=== PATIENT | male | born 1965 | race Caucasian/White ===

== ENCOUNTER 2017-03-14 07:33 | Emergency (ER) | payer OTHER ==
[2017-03-14 07:38] VITALS: BP 144/82; PULSE 75; RESP 17; TEMP 98.6; O2SAT 94
--- NOTE | 2017-03-14 08:00 | EDPHY ---
H & P Time Seen by Provider: 03/14/17 07:43 HPI/ROS: CHIEF COMPLAINT: right forearm laceration HISTORY OF PRESENT ILLNESS: 51-year-old male presents with a right forearm laceration. He was getting out of a truck at work when his arm struck something on the truck. Immediate onset of moderate pain and bleeding, both of which have subsided now. No weakness or numbness. Tetanus is not up-to-date. ROS: No numbness, weakness, excessive bleeding, syncopal episode, other injury. Past Medical/Surgical History: Denies Smoking Status: Never smoked Physical Exam: Alert and oriented, pleasant Extremities: 4 cm v-shaped laceration on the dorsal aspect of the right proximal forearm; elbow range of motion including supination and pronation are normal and without pain Skin: see above Neuro: Motor and sensory intact Vascular: Capillary refill brisk distally. Constitutional: Initial Vital Signs Temperature (C) 37 C 03/14/17 07:35 Heart Rate 75 03/14/17 07:35 Respiratory Rate 17 03/14/17 07:35 Blood Pressure 144/82 H 03/14/17 07:35 O2 Sat (%) 94 03/14/17 07:35 O2 Delivery Mode Room Air Allergies/Adverse Reactions: No Known Allergies Allergy (Unverified 03/14/17 07:35) Home Medications: Medication Instructions Recorded NK [No Known Home Meds] 03/14/17 Medical Decision Making Procedures: Procedure: Laceration repair. The 4 cm laceration on the location was anesthetized using lidocaine with epinephrine. The wound was irrigated, draped and explored to its base with a gloved finger. There were no deep structures involved. No foreign body palpable. The wound was repaired with 4 0 Ethilon. The wound repair was simple. Departure - Departure Disposition: Home, Routine, Self-Care Clinical Impression: Laceration of forearm, right Qualifiers: Encounter type: initial encounter Qualified Code(s): S51.811A - Laceration without foreign body of right forearm, initial encounter Condition: Good Instructions: Care For Your Stitches (ED), Laceration (ED) Additional Instructions: Return for suture removal in 10 days. Referrals: HEBERT,UNKNOWN [Other] - As per Instructions
[2017-03-14] MEDS ORDERED: TDAP ADULT 0.5 ML INJ (BOOSTRIX) IM ONE (08:06)
== END 2017-03-14 08:30 | disposition home or self-care (01) ==
PROC: 0HQDXZZ Repair Right Lower Arm Skin, External Approach (ICD-10-PCS; principal; 2017-03-14)
PROC: 3E0234Z Introduction of Serum, Toxoid and Vaccine into Muscle, Percutaneous Approach (ICD-10-PCS; principal; 2017-03-14)
DX: S51.811A Laceration without foreign body of right forearm, initial encounter (principal); Z23 Encounter for immunization; W22.8XXA Striking against or struck by other objects, initial encounter; Y92.69 Other specified industrial and construction area as the place of occurrence of the external cause; Y99.0 Civilian activity done for income or pay; Y93.89 Activity, other specified

== ENCOUNTER 2018-03-20 09:19 | Inpatient (IN) | payer OTHER, BC ==
[2018-03-20] MEDS ORDERED: NS 1,000 ML IV ONE ×2 (09:27→11:35)
[2018-03-20] MEDS ORDERED: ACETAMINOPHEN 500 MG TAB PO ONE (09:55)
--- NOTE | 2018-03-20 09:59 | EDPHY ---
H & P Stated Complaint: L hernia pain x 4 days worse today. Seen yesterday. Time Seen by Provider: 03/20/18 09:22 HPI/ROS: 52-year-old male presents complaining left inguinal hernia pain and just not feeling well. He states approximately 5 days ago he lifted a very heavy object at work approximately 130 lb and had sudden pain in his left groin. Over the weekend he did not feel well, was running a fever, not measured at home and having sweats. He denies vomiting, diarrhea, constipation. [facility] for a possible left inguinal hernia which was found to be reducible and he was discharged with advised follow-up with surgery. He has an appointment with Dr. Edgard Avelar this March 22. However today he noted he had a high fever and some left-sided abdominal and left groin pain and continued to just not feel well and presented for re- evaluation. He states he took Advil yesterday and has not taken any medications today. Review of systems As per HPI General positive fever no chills no weakness HEENT no eye pain no eye discharge. No eye redness, no sore throat Respiratory no cough, no shortness of breath Cardiac no chest pain, no peripheral edema GI positive abdominal pain, no diarrhea, no constipation, no nausea, no vomiting no flank pain, no hematuria, no dysuria Musculoskeletal no myalgias, no joint pain Heme no easy bruising, no easy bleeding Endo no polyuria, no polydipsia Skin no rashes, no pruritus Neuro no syncope, no dizziness, positive headaches Psych is no suicidal ideation, no homicidal ideation Source: Patient Exam Limitations: No limitations - Personal History Current Tetanus Diphtheria and Acellular Pertussis (TDAP): Yes Tetanus Vaccine Date: within 10 years - Medical/Surgical History Hx Asthma: No Hx Chronic Respiratory Disease: No Hx Diabetes: No Hx Cardiac Disease: No Hx Renal Disease: No Hx Cirrhosis: No Hx Alcoholism: No Hx HIV/AIDS: No Hx Splenectomy or Spleen Trauma: No Other PMH: denies - Family History Significant Family History: No pertinent family hx - Social History Smoking Status: Never smoked Alcohol Use: Occasionally Drug Use: None - Physical Exam Exam: 52-year-old male alert and oriented in no acute distress, nontoxic appearance, febrile to 38.4 HEENT atraumatic normocephalic, extraocular muscles intact, anicteric Oropharynx negative for erythema negative exudate Neck supple no meningismus Lungs clear to auscultation bilaterally Heart rapid regular rate and rhythm without murmur rub or gallop, 118 Abdomen nondistended normoactive bowel sounds soft, left lower quadrant tenderness, no guarding no rebound Left inguinal tenderness , palpable hernia defect but no palpable mass circumcised, no erythema, no scrotal swelling and no lesions Back no CVA tenderness, no step-offs, no spinal tenderness Extremities no cyanosis clubbing or edema Neuro alert and oriented, no focal deficits skin no rash Constitutional: Initial Vital Signs Temperature (C) 38.4 C H 03/20/18 09:23 Heart Rate 104 H 03/20/18 09:23 Respiratory Rate 16 03/20/18 09:23 Blood Pressure 118/92 H 03/20/18 09:23 O2 Sat (%) 94 03/20/18 09:23 O2 Delivery Mode Room Air Allergies/Adverse Reactions: No Known Allergies Allergy (Verified 03/20/18 09:23) Home Medications: Medication Instructions Recorded NK [No Known Home Meds] 03/14/17 Medical Decision Making - Diagnostics Imaging Results: Imaging Impressions Abdomen Ultrasound 03/20/18 09:56 Impression: Suggestion of a left inguinal hernia measuring up to 4.3 cm. Per hospital admitting clerk, no evidence of peristalsis. Abdomen CT 03/20/18 10:54 Impression: 1. Acute diverticulitis of the sigmoid colon with associated microperforation and 4.0 cm organizing phlegmon. 2. Fatty liver. 3. Subcentimeter left adrenal nodule, which in the absence of comparison studies , may be evaluated with adrenal protocol CT or MRI. 4. Fat-containing left inguinal hernia, which right now contains inflamed fat. Findings and recommendations discussed with Madeleine Mccarty MD at 1128 hour, 03/20/2018. ED Course/Re-evaluation: Patient seen and evaluated for left inguinal, left abdominal pain and fever. IV established IV normal saline 1 L wide open given Acetaminophen 1 g po For fever given Toradol 15 mg IV push for fever and pain also given after creatinine noted to be within the normal range. Labs were drawn CBC-elevated white blood cell count 14 with a left shift Lactate 1.2, within normal limits CMP sodium 131, chloride 92, BUN and creatinine within normal, bilirubin 1.5 Glucose 200 Anion gap 13 Patient given an additional L of normal saline for elevated glucose Ultrasound to evaluate hernia, shows an area consistent with a left inguinal hernia without peristalsis and with no evidence for incarceration Given elevated white blood cell count and left-sided abdominal pain and fever, not explained by the ultrasound or physical exam a CT scan of the abdomen and pelvis with IV contrast was ordered to further elucidate the likely cause. CT abdomen pelvis with contrast Positive for acute diverticulitis with a possible developing phlegmon A left inguinal fat containing hernia also noted Impression Acute diverticulitis with possible developing phlegmon New onset diabetes Left inguinal fat containing hernia Plan Start IV antibiotics Metronidazole 500 mg IV piggyback Cipro 400 mg IV piggyback I discussed this case with the hospitalist to arrange admission. Differential Diagnosis: Differential diagnosis considered but not limited to: Left inguinal hernia, left femoral hernia, incarcerated hernia, diverticulitis, colon cancer, kidney stone, pyelonephritis - Data Points Laboratory Results: 03/20/18 03/20/18 09:53 09:48 POC Sodium 131 mEq/L L mEq/L (135-145) POC Potassium 3.8 mEq/L mEq/L (3.3-5.0) POC Chloride 97.0 mEq/L mEq/L (97-110) POC Total CO2 21 mEq/L L mEq/L (22-31) POC BUN 11 mg/dL mg/dL (7-23) POC Creatinine 1.1 mg/dL mg/dL (0.7-1.3) POC Glucose 207 mg/dL H mg/dL (70-100) POC Lactic Acid Ignacio 1.2 mmol/L mmol/L (0.7-2.1) POC Calcium 8.5 mg/dL mg/dL (8.5-10.4) POC Total Bilirubin 1.5 mg/dL H mg/dL (0.1-1.4) POC AST 27 IU/L IU/L (17-59) POC ALT 30 IU/L IU/L (21-72) POC Alk Phosphatase 61 IU/L IU/L (38-126) POC Total Protein 7.2 g/dL g/dL (6.3-8.2) POC Albumin 3.5 g/dL g/dL (3.5-5.0) Medications Given: Discontinued Medications Acetaminophen (Tylenol) 1,000 mg PO EDNOW ONE Stop: 03/20/18 09:56 Last Admin: 03/20/18 10:33 Dose: 1,000 mg Sodium Chloride (Ns) 1,000 mls @ 0 mls/hr IV ONCE ONE PRN Reason: Wide Open Stop: 03/20/18 09:28 Last Admin: 03/20/18 09:44 Dose: 1,000 mls Metronidazole/Sodium Chloride (Flagyl 500 Mg (Premix)) 100 mls @ 100 mls/hr IV EDNOW ONE PRN Reason: Protocol Stop: 03/20/18 12:33 Last Admin: 03/20/18 12:46 Dose: 100 mls Ciprofloxacin/Dextrose (Cipro 400 Mg (Premix)) 200 mls @ 200 mls/hr IV EDNOW ONE PRN Reason: Protocol Stop: 03/20/18 12:34 Last Admin: 03/20/18 11:47 Dose: 200 mls Sodium Chloride (Ns) 1,000 mls @ 0 mls/hr IV ONCE ONE PRN Reason: Wide Open Stop: 03/20/18 11:36 Last Admin: 03/20/18 11:47 Dose: 1,000 mls Ketorolac Tromethamine (Toradol) 15 mg IVP EDNOW ONE Stop: 03/20/18 10:06 Last Admin: 03/20/18 10:30 Dose: 15 mg Point of Care Test Results: CBC CBC Collection Date 03/20/18 CBC Collection Time 09:42 WBC 14.5 RBC 5.59 HGB 16.1 HCT 47.8 PLT 232 Neut # 12.0 Neut 82.9 LYMPH # 1.3 LYMPH 8.7 Other WBC # 1.2 Other WBC 8.4 MCV 85.5 Chemistry 03/20/18 09:48 POC Sodium 131 mEq/L L mEq/L (135-145) POC Potassium 3.8 mEq/L mEq/L (3.3-5.0) POC Chloride 97.0 mEq/L mEq/L (97-110) POC Total CO2 21 mEq/L L mEq/L (22-31) POC BUN 11 mg/dL mg/dL (7-23) POC Creatinine 1.1 mg/dL mg/dL (0.7-1.3) POC Glucose 207 mg/dL H mg/dL (70-100) POC Calcium 8.5 mg/dL mg/dL (8.5-10.4) POC Total Bilirubin 1.5 mg/dL H mg/dL (0.1-1.4) POC AST 27 IU/L IU/L (17-59) POC ALT 30 IU/L IU/L (21-72) POC Alk Phosphatase 61 IU/L IU/L (38-126) POC Total Protein 7.2 g/dL g/dL (6.3-8.2) POC Albumin 3.5 g/dL g/dL (3.5-5.0) Blood Gas/Lactic Acid-Venous 03/20/18 09:53 POC Lactic Acid Ignacio 1.2 mmol/L mmol/L (0.7-2.1) Comprehensive Metabolic Panel CMP Collection Date 03/20/18 CMP Collection Time 09:42 Urine Dip Collection Date 03/20/18 Collection Time 10:35 Specific [place] (1.002-1.030) 1.020 PH (5.0-7.5) 6.0 Leukocytes (Negative) Negative Nitrites (Negative) Negative Protein (Negative) 2+ Glucose (Negative) Trace Ketones (Negative) 2+ Urobilnogen (0.2-1.0 EU) 2.0 Bilirubin (Negative) Test Not Performed Blood (Negative) Negative Departure - Departure Disposition: [facility] Inpatient Acute Clinical Impression: Diverticulitis large intestine, New onset type 2 diabetes mellitus, Left inguinal hernia Condition: Good
[2018-03-20] MEDS ORDERED: KETOROLAC 15 MG/1 ML SDV IVP ONE (10:05)
[2018-03-20] MEDS ORDERED: IOPAMIDOL (ISOVUE-300) 100 ML BTL ONE (11:01)
[2018-03-20] MEDS ORDERED: CIPROFLOXACIN 400 MG/DEXTROSE 200 ML IV ONE (11:35)
--- NOTE | 2018-03-20 16:57 | ASMTCMCOM ---
CM Note CM Note Notes: Pt admitted through ED complaining of fever and groin pain. CT showed diverticulitis with micro perfs and inguinal hernia. CM needs TBD pending hospitalist evaluation. Date Signed: 03/20/2018 04:23 PM Electronically Signed By:LEO Bernardo
[2018-03-20] MEDS ORDERED: D50W 25 GM/50 ML SYR IVP PRN (17:28)
[2018-03-20] MEDS ORDERED: ONDANSETRON 4 MG/2 ML VIAL IVP PRN (17:29)
[2018-03-20] MEDS ORDERED: PROMETHAZINE HCL 25 MG/ML INJ IVP PRN (17:29)
[2018-03-20] MEDS: ERTAPENEM 1 GM in NS 100 ML IV SCH (18:01)
[2018-03-20] MEDS: ACETAMINOPHEN 325 MG TAB PO PRN (18:10)
--- NOTE | 2018-03-20 18:14 | GHP ---
[f rep st] HISTORY AND PHYSICAL DATE OF ADMISSION: 03/20/2018 CHIEF COMPLAINT: Fever. HISTORY OF PRESENT ILLNESS: This is a 52-year-old male who works at [employer], who developed a hernia on while at work. He took Monday off but Monday developed fever and generalized malaise as well as some sweats. His appetite has been very diminished. His last bowel movement was last night. He has not had any vomiting. He went to [facility] Emergency Department earlier today, where a CT scan was do ne, which showed acute diverticulitis of the sigmoid colon with associated microperforation and 4 cm organizing phlegmon. The patient was then subsequently transferred to [facility], where I saw him. Curr ently the patient denies any significant abdominal pain. PAST MEDICAL HISTORY: None. PAST SURGICAL HISTORY: Ankle surgery. HOME MEDICATIONS: None. ALLERGIES: No known drug allergies. SOCIAL HISTORY: The patient works for [employer]. He drinks alcohol occasionally. He denies any tobacco o r illicit drug use. FAMILY HISTORY: Reviewed and noncontributory. REVIEW OF SYSTEMS: Comprehensive 10-point review of systems was done and is negative except for as m entioned in the HPI. PHYSICAL EXAM: VITAL SIGNS: Blood pressure 103/72, pulse of 84, respiratory rate 18, O2 sat 96% on room air. Temperature afebrile. GENERAL: In no acute distress. HEAD: Normocephalic, atraumatic. EYES: PERRLA. Sclerae are anicteric. MOUTH: Moist mucous membranes. NECK: Supple. No lymphade nopathy. CARDIOVASCULAR: S1 and S2. No murmurs, rubs, clicks, gallops. No JVD. No lower extremit y edema. PULMONARY: Lungs are clear. No wheezes, rales, or rhonchi. ABDOMEN: Soft. Normoactive bowel sounds. There is some mild tenderness to deep palpation in the left lower quadrant with no gua rding or rebound tenderness. EXTREMITIES: No clubbing or cyanosis. NEURO: Cranial nerves 2 throug h 12 grossly intact. No focal motor or sensory deficits. SKIN: Clear. No rashes. DIAGNOSTICS: Laodu-yw-vqme sodium was 131, potassium 3.8, chloride 97, BUN 11, creatinine 1.1, gluco se 207. Venous lactic acid was 1.2, total bili 1.5. LFTs unremarkable. Abdominal ultrasound done earlier today showed suggestions of left inguinal hernia measuring 4.[address] of the abdomen and pelvis also showed a fat-containing left inguinal hernia which contains inflame d fat as well as acute diverticulitis of the sigmoid colon with associated microperforation and a 4 c m organizing phlegmon. There is a subcentimeter left adrenal nodule. ASSESSMENT AND PLAN: This is a 52-year-old male presenting with fever and malaise. Found to have: 1. Acute diverticulitis with microperforation and 4 cm organizing phlegmon. 2. Left inguinal hernia with inflamed fats. 3. Incidental adrenal nodule. 4. Hyperglycemia with no known diagnosis of diabetes. 5. Mild hyponatremia. PLAN: 1. Admit to the medical-surgical floor. 2. Start IV ertapenem 1 g IV q. day. 3. I discussed the case with Dr. Edgard Avelar, on-call for general surgery, who will see the patien t. Given the patient does not currently have signs of acute peritonitis on exam, i will start clear liquids. He may ultimately require surgery for hernia repair and treatment of the phlegmon and micro perforations seen on CT. 4. Monitor blood sugars and treat with correctional insulin as indicated. We will check a hemoglobi n A1c. 5. I will order a CBC, since one has not yet been done. 6. Monitor BMP and serum sodium. 7. The patient requests to be full code status. /[id number]/MODL
[2018-03-20] MEDS: INSULIN REGULAR HUMAN 100 UNIT/ML UNIT SC SCH ×2 (18:42→21:15)
[2018-03-20 18:46] LABS: PLATELET COUNT 220 10^3/uL (150-400)
[2018-03-20] MEDS ORDERED: KETOROLAC 30 MG/1 ML SDV IVP ONE (19:15)
--- NOTE | 2018-03-20 20:02 | SOAPPROG ---
SOAP Progress Note Assessment/Plan: Assessment: 52-YEAR-OLD ILL-APPEARING MALE WITH HIS 1ST EPISODE OF DIVERTICULITIS COMPLICATED BY SMALL ABSCESS. THE ABSCESS MAY BE ACCESSIBLE PERCUTANEOUSLY IF HE FAILS TO RESPOND TO ANTIBIOTICS QUICKLY. RISKS AND OPTIONS BEEN FULLY DISCUSSED INCLUDING EVENTUAL NEED FOR COLECTOMY NO PREVIOUS DIVERTICULITIS OR PREVIOUS ABDOMINAL SURGERY/SHE DOES HAVE A SLIGHTLY SYMPTOMATIC LEFT INGUINAL HERNIA HEENT NONICTERIC WITHOUT ADENOPATHY CHEST CLEAR COR REGULAR RHYTHM ABDOMEN SOFT MILDLY TENDER IN THE SUPRAPUBIC AREA, AND POSITIVE BOWEL SOUNDS, LEFT INGUINAL HERNIA REDUCIBLE GENITALIA NORMAL EXTREMITIES BENIGN FULL PULSES ACUTE DIVERTICULITIS WITH SMALL CONTAINED PERFORATION Plan: WILL FOLLOW WITH IV ANTIBIOTICS AND CLOSE OBSERVATION/ POSSIBLE PERCUTANEOUS DRAINAGE IF THE ABSCESS ENLARGES / POSSIBLE MARGINS SURGERY IF HE IS NOT IMPROVING AND DEFINITE SIGMOID COLECTOMY IN THE FUTURE 03/20/18 Objective: Vital Signs Temp Pulse Resp BP Pulse Ox 36.8 C 84 18 103/72 96 03/20/18 16:13 03/20/18 16:13 03/20/18 16:13 03/20/18 16:13 03/20/18 16:13 03/19/18 03/20/18 03/21/18 05:59 05:59 05:59 Intake Total 2540 Balance 2540 ICD10 Worksheet Patient Problems: Problems Problem Status Onset Diverticulitis large intestine Acute Left inguinal hernia Acute New onset type 2 diabetes mellitus Acute
[2018-03-21] MEDS: KETOROLAC 15 MG/1 ML SDV IVP SCH ×4 (04:10→19:43)
[2018-03-21 05:11] LABS: PLATELET COUNT 197 10^3/uL (150-400)
[2018-03-21] MEDS: ENOXAPARIN 40 MG/0.4 ML SYR SC SCH (10:02)
[2018-03-21] MEDS: INSULIN REGULAR HUMAN 100 UNIT/ML UNIT SC SCH ×4 (10:34→21:11)
--- NOTE | 2018-03-21 11:04 | PDMN ---
Medical Necessity Medical necessity: [facility] Diverticulitis Acute, A-2 days. 52 y/o w/ acute diverticulitis of sigmoid colon w/ associated microperforation and 4cm organizing phlegmon, and left inguinal hernia, IV antibx required, scheduled IV pain medications, Surgical consult: surgery possible for abscess development if no improvement, definite sigmoid colectomy needed in future. New onset Type 2 diabetes. Hypotensive with SBP in 90's. Temp 38.4, Elevated WBC 16.78 (up from 14.48). Hyponatremia noted. BC pending. Anticipate >2MN for ongoing monitoring and treatment.
--- NOTE | 2018-03-21 12:27 | SOAPPROG ---
SOAP Progress Note Assessment/Plan: Assessment: 51 y/o M admitted with small diverticular abscess S: Feels better. Denies pain, nausea and vomiting. Passing gas and BMs. O: Alert Afebrile RRR No increased WOB Abdomen: soft, nontender, slightly distended, +BS Plan: Continue conservative management given clinical improvement. Will continue to follow. Pt will need sigmoid colectomy at some point when infection has cooled off. Appreciate ID input. 03/21/18 12:25 Objective: Vital Signs Temp Pulse Resp BP Pulse Ox 37.3 C 70 18 92/52 L 92 03/21/18 11:47 03/21/18 11:47 03/21/18 11:47 03/21/18 11:47 03/21/18 11:47 Laboratory Results 03/21/18 04:27 03/21/18 04:27 03/20/18 03/21/18 03/22/18 05:59 05:59 05:59 Intake Total 2540 350 Balance 2540 350 ICD10 Worksheet Patient Problems: Problems Problem Status Onset Diverticulitis large intestine Acute Left inguinal hernia Acute New onset type 2 diabetes mellitus Acute
--- NOTE | 2018-03-21 12:29 | HOSPPROG ---
Hospitalist Progress Note Assessment/Plan: Patient is a 52 y/o male who presented to the ER with Fever. He had a CT scan which showed acute diverticulitis of the sigmoid colon w associated microperforation. Today is my first encounter with the patient, chart reviewed. *Acute diverticulitis with a small contained perforation -on Ertapenem -tolerating clear liquids -not in pain during my evaluation -will eventually need a colectomy -continue supportive care with IV hydration *Leukocytosis and fevers -due to the above -continued treatment w Tylenol and fluids *incidental adrenal nodule, this was noted on CT -should continued to have monitored in the OP setting *left inguinal hernia -may need surgery for this down the road *hyperglycemia -overall resolved, likely stress induced *Plan: continued clear liquids, iv fluids, recheck labs in a.m. Subjective: Solo has no complaints of pain, tolerating clear liquids. Objective: Vital Signs Temp Pulse Resp BP Pulse Ox 37.3 C 70 18 92/52 L 92 03/21/18 11:47 03/21/18 11:47 03/21/18 11:47 03/21/18 11:47 03/21/18 11:47 Laboratory Results 03/21/18 04:27 03/21/18 04:27 03/20/18 03/21/18 03/22/18 05:59 05:59 05:59 Intake Total 2540 350 Balance 2540 350 - Physical Exam Constitutional: no apparent distress, appears nourished Eyes: PERRL Ears, Nose, Mouth, Throat: hearing normal Cardiovascular: regular rate and rhythym Respiratory: no respiratory distress Gastrointestinal: normoactive bowel sounds, tenderness (slight in right lower quadrant), No rebound, No distension Skin: warm Musculoskeletal: full muscle strength Neurologic: AAOx3 Psychiatric: interacting appropriately ICD10 Worksheet Patient Problems: Problems Problem Status Onset Diverticulitis large intestine Acute Left inguinal hernia Acute New onset type 2 diabetes mellitus Acute
[2018-03-21] MEDS: NS 1,000 ML IV SCH ×2 (14:09→23:14)
[2018-03-21] MEDS: ACETAMINOPHEN 325 MG TAB PO PRN (15:34)
[2018-03-21] MEDS: ERTAPENEM 1 GM in NS 100 ML IV SCH (17:45)
--- NOTE | 2018-03-21 18:10 | SOAPPROG ---
SOAP Progress Note Assessment/Plan: Assessment: 52-YEAR-OLD ILL-APPEARING MALE WITH HIS 1ST EPISODE OF DIVERTICULITIS COMPLICATED BY SMALL ABSCESS. THE ABSCESS MAY BE ACCESSIBLE PERCUTANEOUSLY IF HE FAILS TO RESPOND TO ANTIBIOTICS QUICKLY. RISKS AND OPTIONS BEEN FULLY DISCUSSED INCLUDING EVENTUAL NEED FOR COLECTOMY NO PREVIOUS DIVERTICULITIS OR PREVIOUS ABDOMINAL SURGERY/SHE DOES HAVE A SLIGHTLY SYMPTOMATIC LEFT INGUINAL HERNIA HEENT NONICTERIC WITHOUT ADENOPATHY CHEST CLEAR COR REGULAR RHYTHM ABDOMEN SOFT MILDLY TENDER IN THE SUPRAPUBIC AREA, AND POSITIVE BOWEL SOUNDS, LEFT INGUINAL HERNIA REDUCIBLE GENITALIA NORMAL EXTREMITIES BENIGN FULL PULSES ACUTE DIVERTICULITIS WITH SMALL CONTAINED PERFORATION Plan: WILL FOLLOW WITH IV ANTIBIOTICS AND CLOSE OBSERVATION/ POSSIBLE PERCUTANEOUS DRAINAGE IF THE ABSCESS ENLARGES / POSSIBLE MARGINS SURGERY IF HE IS NOT IMPROVING AND DEFINITE SIGMOID COLECTOMY IN THE FUTURE 03/20/18 03/21/18 18:09 minimal temp/ improving/ wbc better/ tolerating clears Objective: Vital Signs Temp Pulse Resp BP Pulse Ox 37.4 C 80 18 100/63 91 L 03/21/18 16:00 03/21/18 16:00 03/21/18 16:00 03/21/18 16:00 03/21/18 16:00 Laboratory Results 03/21/18 04:27 03/21/18 04:27 03/20/18 03/21/18 03/22/18 05:59 05:59 05:59 Intake Total 2540 900 Balance 2540 900 ICD10 Worksheet Patient Problems: Problems Problem Status Onset Diverticulitis large intestine Acute Left inguinal hernia Acute New onset type 2 diabetes mellitus Acute
[2018-03-21] MEDS ORDERED: ACETAMINOPHEN 500 MG TAB PO ONE (19:23)
--- NOTE | 2018-03-21 20:40 | ASMTCMCOM ---
CM Note CM Note Notes: Spoke with pt and RN who both anticipate pt will d/c home independently. Microperforations now being managed conservatively, pt will need colectomy once infection has subsided after discharge. Pt states he does not yet have a PCP, but lives in [place] so not likely [facility] PCP will be feasible. Pt acknowledges follow up with PCP on new DM diagnosis is important and states he will do so. No CM needs anticipated on D/C at this time. CM will follow for possible changes. Plan: Independent Date Signed: 03/21/2018 08:40 PM Electronically Signed By:Christina Mortensen RN
[2018-03-22] MEDS: KETOROLAC 15 MG/1 ML SDV IVP SCH ×3 (01:00→13:17)
[2018-03-22 04:57] LABS: PLATELET COUNT 176 10^3/uL (150-400)
[2018-03-22] MEDS: ENOXAPARIN 40 MG/0.4 ML SYR SC SCH (08:50)
[2018-03-22] MEDS: ACETAMINOPHEN 325 MG TAB PO PRN ×2 (08:50→19:26)
[2018-03-22] MEDS: INSULIN REGULAR HUMAN 100 UNIT/ML UNIT SC SCH ×4 (09:19→21:09)
[2018-03-22] MEDS ORDERED: NS 1,000 ML IV ONE (10:54)
[2018-03-22] MEDS: NS 1,000 ML IV SCH ×2 (13:18→17:05)
--- NOTE | 2018-03-22 15:23 | HOSPPROG ---
Hospitalist Progress Note Assessment/Plan: *Acute diverticulitis with a small contained perforation and phlegmon -IV Ertapenem -tolerating clear liquids -IR vs surgery to address phlegmon and perf per Dr Avelar -will eventually need a colectomy -continue supportive care with IV hydration *Leukocytosis and fevers, both improving -due to the above -continued treatment w Tylenol and fluids *incidental adrenal nodule, this was noted on CT -should continued to have monitored in the OP setting -needs a PCP at discharge *left inguinal hernia -may need surgery for this down the road *hyperglycemia -overall resolved, likely stress induced -hgba1c 8, type 2 DM dx -continue with glc checks, will need oral meds and education *anemia -likely dilutional -watch closely DISPO- >2 mdnts for treatment of abscess/perf PCP- none, needs appt at discharge DVT prophylaxis-lovenox FULL CODE Subjective: Says feels OK, no v/d. Taking clears. No SOB/CP. Glad WBC coming down. No PCP- sally in [facility], but works in [place] Objective: Vital Signs Temp Pulse Resp BP Pulse Ox 98.6 F 68 16 117/76 94 03/22/18 12:00 03/22/18 12:00 03/22/18 12:00 03/22/18 12:00 03/22/18 12:00 Laboratory Results 03/22/18 04:26 03/22/18 04:26 03/21/18 03/22/18 03/23/18 11:59 11:59 11:59 Intake Total 2890 550 Balance 2890 550 - Time Spent With Patient Time Spent with Patient: greater than 25 minutes Time Spent with Patient: Greater than 25 minutes spent on this patients care, greater than 50% of time spent counseling, educating, and coordinating care regarding the above mentioned plan. - Pending Discharge Pending Discharge Within 48 Hours: No - Physical Exam Constitutional: no apparent distress, appears nourished, not in pain Eyes: anicteric sclera, EOMI Ears, Nose, Mouth, Throat: moist mucous membranes, hearing normal Cardiovascular: regular rate and rhythym, no murmur, rub, or gallop, No edema Respiratory: no respiratory distress, no rales or rhonchi, clear to auscultation Gastrointestinal: normoactive bowel sounds, soft, non-tender abdomen, No ascites , No hepatosplenomegally, No guarding, No rebound, No distension Skin: warm, No rash Psychiatric: interacting appropriately, not anxious, not encephalopathic, thought process linear ICD10 Worksheet Patient Problems: Problems Problem Status Onset Diverticulitis large intestine Acute Left inguinal hernia Acute New onset type 2 diabetes mellitus Acute
[2018-03-22] MEDS ORDERED: traMADol 50 MG TAB PO PRN (15:24)
[2018-03-22] MEDS: ERTAPENEM 1 GM in NS 100 ML IV SCH (17:04)
--- NOTE | 2018-03-22 19:27 | SOAPPROG ---
SOAP Progress Note Assessment/Plan: Assessment: 52-YEAR-OLD ILL-APPEARING MALE WITH HIS 1ST EPISODE OF DIVERTICULITIS COMPLICATED BY SMALL ABSCESS. THE ABSCESS MAY BE ACCESSIBLE PERCUTANEOUSLY IF HE FAILS TO RESPOND TO ANTIBIOTICS QUICKLY. RISKS AND OPTIONS BEEN FULLY DISCUSSED INCLUDING EVENTUAL NEED FOR COLECTOMY NO PREVIOUS DIVERTICULITIS OR PREVIOUS ABDOMINAL SURGERY/SHE DOES HAVE A SLIGHTLY SYMPTOMATIC LEFT INGUINAL HERNIA HEENT NONICTERIC WITHOUT ADENOPATHY CHEST CLEAR COR REGULAR RHYTHM ABDOMEN SOFT MILDLY TENDER IN THE SUPRAPUBIC AREA, AND POSITIVE BOWEL SOUNDS, LEFT INGUINAL HERNIA REDUCIBLE GENITALIA NORMAL EXTREMITIES BENIGN FULL PULSES ACUTE DIVERTICULITIS WITH SMALL CONTAINED PERFORATION Plan: WILL FOLLOW WITH IV ANTIBIOTICS AND CLOSE OBSERVATION/ POSSIBLE PERCUTANEOUS DRAINAGE IF THE ABSCESS ENLARGES / POSSIBLE MARGINS SURGERY IF HE IS NOT IMPROVING AND DEFINITE SIGMOID COLECTOMY IN THE FUTURE 03/20/18 03/21/18 18:09 minimal temp/ improving/ wbc better/ tolerating clears 03/22/18 19:26 FEELING BETTER/LOW-GRADE TEMP/ ABDOMEN LESS TENDER AND SOFT/WBC 8000/ OVERALL IMPROVING/ PLAN FOLLOW-UP CT SCAN IN THE A.M. Objective: Vital Signs Temp Pulse Resp BP Pulse Ox 37.2 C 59 L 16 98/55 L 93 03/22/18 16:00 03/22/18 16:00 03/22/18 16:00 03/22/18 16:00 03/22/18 16:00 Laboratory Results 03/22/18 04:26 03/22/18 04:26 03/21/18 03/22/18 03/23/18 05:59 05:59 05:59 Intake Total 2540 900 Balance 2540 900 ICD10 Worksheet Patient Problems: Problems Problem Status Onset Diverticulitis large intestine Acute Left inguinal hernia Acute New onset type 2 diabetes mellitus Acute
[2018-03-23] MEDS: ACETAMINOPHEN 325 MG TAB PO PRN ×3 (04:31→22:58)
[2018-03-23] MEDS: INSULIN REGULAR HUMAN 100 UNIT/ML UNIT SC SCH ×4 (10:00→21:27)
--- NOTE | 2018-03-23 10:19 | HOSPPROG ---
Hospitalist Progress Note Assessment/Plan: *Acute diverticulitis with a small perforation and phlegmon -IV Ertapenem -tolerating clear liquids -awaiting CT to decide re IR vs surgery intervention needed -will eventually need a colectomy per Dr Avelar -continue supportive care with IV hydration -discussed care plan with Dr Avelar *Leukocytosis and fever -due to the above -continued treatment w Tylenol and fluids *incidental adrenal nodule, this was noted on CT -should continued to have monitored in the OP setting -needs a PCP at discharge *left inguinal hernia -may need surgery for this down the road *hyperglycemia -hgba1c 8, type 2 DM dx -continue with glc checks, will need oral meds and education after discharge *anemia -likely dilutional -stable DISPO- >2 mdnts for treatment of abscess/perf PCP- none, needs appt at discharge DVT prophylaxis-lovenox FULL CODE Subjective: Denies pain/n/v/d. Had a low grade temp overnt, CT ordred for today. Denies CP/SOB. Says feels ok. Says told prev he had DM, but then when retested it 'went away.' Objective: Vital Signs Temp Pulse Resp BP Pulse Ox 99.2 F 60 12 106/65 92 03/23/18 08:00 03/23/18 08:00 03/23/18 08:00 03/23/18 08:00 03/23/18 08:00 Laboratory Results 03/23/18 04:50 03/23/18 04:50 03/21/18 03/22/18 03/23/18 11:59 11:59 11:59 Intake Total 2890 550 750 Balance 2890 550 750 - Time Spent With Patient Time Spent with Patient: greater than 35 minutes Time Spent with Patient: Greater than 35 minutes spent on this patients care, greater than 50% of time spent counseling, educating, and coordinating care regarding the above mentioned plan. - Physical Exam Constitutional: no apparent distress, appears nourished, not in pain Eyes: anicteric sclera, EOMI Ears, Nose, Mouth, Throat: moist mucous membranes, hearing normal Cardiovascular: regular rate and rhythym, No edema Respiratory: no respiratory distress, no rales or rhonchi, clear to auscultation Gastrointestinal: normoactive bowel sounds, soft, non-tender abdomen, no palpable masses, tenderness, No guarding, No rebound, No distension Skin: warm Psychiatric: interacting appropriately, not anxious, not encephalopathic, thought process linear ICD10 Worksheet Patient Problems: Problems Problem Status Onset Diverticulitis large intestine Acute Left inguinal hernia Acute New onset type 2 diabetes mellitus Acute
[2018-03-23] MEDS ORDERED: IOPAMIDOL (ISOVUE-300) 100 ML BTL ONE (12:06)
[2018-03-23] MEDS: ENOXAPARIN 40 MG/0.4 ML SYR SC SCH (13:28)
[2018-03-23] MEDS: NS 1,000 ML IV SCH (17:42)
[2018-03-23] MEDS: ERTAPENEM 1 GM in NS 100 ML IV SCH (17:42)
--- NOTE | 2018-03-23 18:50 | SOAPPROG ---
SOAP Progress Note Assessment/Plan: Assessment: 52-YEAR-OLD ILL-APPEARING MALE WITH HIS 1ST EPISODE OF DIVERTICULITIS COMPLICATED BY SMALL ABSCESS. THE ABSCESS MAY BE ACCESSIBLE PERCUTANEOUSLY IF HE FAILS TO RESPOND TO ANTIBIOTICS QUICKLY. RISKS AND OPTIONS BEEN FULLY DISCUSSED INCLUDING EVENTUAL NEED FOR COLECTOMY NO PREVIOUS DIVERTICULITIS OR PREVIOUS ABDOMINAL SURGERY/SHE DOES HAVE A SLIGHTLY SYMPTOMATIC LEFT INGUINAL HERNIA HEENT NONICTERIC WITHOUT ADENOPATHY CHEST CLEAR COR REGULAR RHYTHM ABDOMEN SOFT MILDLY TENDER IN THE SUPRAPUBIC AREA, AND POSITIVE BOWEL SOUNDS, LEFT INGUINAL HERNIA REDUCIBLE GENITALIA NORMAL EXTREMITIES BENIGN FULL PULSES ACUTE DIVERTICULITIS WITH SMALL CONTAINED PERFORATION Plan: WILL FOLLOW WITH IV ANTIBIOTICS AND CLOSE OBSERVATION/ POSSIBLE PERCUTANEOUS DRAINAGE IF THE ABSCESS ENLARGES / POSSIBLE MARGINS SURGERY IF HE IS NOT IMPROVING AND DEFINITE SIGMOID COLECTOMY IN THE FUTURE 03/20/18 03/21/18 18:09 minimal temp/ improving/ wbc better/ tolerating clears 03/22/18 19:26 FEELING BETTER/LOW-GRADE TEMP/ ABDOMEN LESS TENDER AND SOFT/WBC 8000/ OVERALL IMPROVING/ PLAN FOLLOW-UP CT SCAN IN THE A.M. 03/23/18 18:48 INCREASING FEVER/ CT SUGGESTED ENLARGING ABSCESS/ WILL TRY FOR CT-GUIDED ABSCESS DRAINAGE/RISKS AND OPTIONS DISCUSSED Objective: Vital Signs Temp Pulse Resp BP Pulse Ox 38.5 C H 57 L 12 90/50 L 92 03/23/18 15:44 03/23/18 15:44 03/23/18 15:44 03/23/18 15:44 03/23/18 15:44 Laboratory Results 03/23/18 04:50 03/23/18 04:50 03/22/18 03/23/18 03/24/18 05:59 05:59 05:59 Intake Total 900 750 800 Balance 900 750 800 ICD10 Worksheet Patient Problems: Problems Problem Status Onset Diverticulitis large intestine Acute Left inguinal hernia Acute New onset type 2 diabetes mellitus Acute
[2018-03-24] MEDS: NS 1,000 ML IV SCH (07:17)
[2018-03-24] MEDS: ACETAMINOPHEN 325 MG TAB PO PRN ×3 (08:35→20:20)
[2018-03-24] MEDS: INSULIN REGULAR HUMAN 100 UNIT/ML UNIT SC SCH ×4 (10:09→23:12)
[2018-03-24] MEDS ORDERED: ceFAZolin 2 GM/DEXTROSE 100 ML IV ONE (11:06)
[2018-03-24] MEDS ORDERED: GLUCAGON HCL 1 MG VIAL IVP PRN (11:06)
[2018-03-24] MEDS ORDERED: NALOXONE HCL 0.4 MG/ML INJ IVP PRN (11:06)
[2018-03-24] MEDS ORDERED: MIDAZOLAM 2 MG/2 ML VIAL IVP PRN (11:06)
[2018-03-24] MEDS ORDERED: MEPERIDINE 25 MG/ML SYR IVP PRN (11:06)
[2018-03-24] MEDS ORDERED: HEPARIN 10,000 UNIT/10 ML MDV (1,000 UNIT/ML) IVP PRN (11:06)
[2018-03-24] MEDS ORDERED: PROTAMINE SULFATE 50 MG/5 ML VIAL IVP PRN (11:06)
[2018-03-24] MEDS ORDERED: fentaNYL 100 MCG/2 ML INJ IVP PRN (11:06)
[2018-03-24] MEDS ORDERED: FLUMAZENIL 0.5 MG/5 ML MDV IVP PRN (11:06)
[2018-03-24] MEDS ORDERED: ALTEPLASE 2 MG VIAL IVP PRN (11:06)
[2018-03-24] MEDS ORDERED: NS 1,000 ML IV SCH (11:15)
--- NOTE | 2018-03-24 11:31 | PDPROPOC ---
Sedation Plan of Care Sedation Plan of Care: vital signs stable, mental status noted, patient educated of risks, benefits, alternatives, patient can tolerate sedation ASA Classification: ASA 2 Planned drugs: fentanyl, midazolam Mallampati Score: Class 2 Mallampati Reference Image: Patient passed 3-3-2 rule?: Yes
--- NOTE | 2018-03-24 11:31 | PDHPUP ---
History & Physical Update H&P update statement: This history and physical update is based on an assessment of the patient which was completed after admission or registration (within 24 hours), but prior to the surgery/procedure. H&P update: H&P reviewed & patient examined (Abscess drain placement with CT guidance), no change in patient's condition since H&P completed
--- NOTE | 2018-03-24 12:29 | PDRADPN ---
Radiology Procedure Note Date of Procedure: 03/24/18 Radiologist: Steve David Anesthesia: IV Sedation Pre-op Diagnosis: abscess Post-op Diagnosis: abscess Indication: Pelvic abscess Procedure: CT guided drain placement Finding(s): Midline pelvic abscess drain placement, brown purulent fluid sent to micro for analysis. Inf/Abcess present in the surg proc area at time of surgery?: Yes Depth: Deep Incisional (Fascial) EBL: Minimal Drains: Constavac
--- NOTE | 2018-03-24 12:34 | HOSPPROG ---
Hospitalist Progress Note Assessment/Plan: Patient is a 52 y/o male who presented to the ER with Fever. He had a CT scan which showed acute diverticulitis of the sigmoid colon w associated microperforation. *Acute diverticulitis with a small perforation and phlegmon -IV Ertapenem -tolerating clear liquids -fluid collection on CT, s/p IR drainage today -will eventually need a colectomy per Dr Avelar -continue supportive care with IV hydration *Leukocytosis and fever -due to the above -continued treatment w Tylenol and fluids -first set of blood cx show no growth; second set sent due to ongoing fevers *incidental adrenal nodule, this was noted on CT -should continued to have monitored in the OP setting -needs a PCP at discharge *left inguinal hernia -may need surgery for this down the road *hyperglycemia -hgba1c 8, type 2 DM dx -continue with glc checks, will need oral meds and education after discharge *anemia -likely dilutional -stable *Plan: monitor and see how he does, he is anxious to go home, but wants to stay until he is better. If fevers persist, may need surgery. Subjective: Solo is feeling better since going to IR. Objective: Vital Signs Temp Pulse Resp BP Pulse Ox 37.4 C 65 18 104/62 96 03/24/18 11:15 03/24/18 11:15 03/24/18 11:15 03/24/18 12:16 03/24/18 12:16 Laboratory Results 03/24/18 04:15 03/24/18 04:15 03/23/18 03/24/18 03/25/18 05:59 05:59 05:59 Intake Total 750 3512 Balance 750 3512 - Physical Exam Constitutional: no apparent distress, appears nourished, not in pain Eyes: PERRL Ears, Nose, Mouth, Throat: hearing normal Cardiovascular: regular rate and rhythym Respiratory: no respiratory distress, reduced air movement (bases) Gastrointestinal: normoactive bowel sounds, other (ryley in rlq w min bloody drainage) Skin: warm Musculoskeletal: full muscle strength Neurologic: AAOx3 Psychiatric: interacting appropriately ICD10 Worksheet Patient Problems: Problems Problem Status Onset Diverticulitis large intestine Acute Left inguinal hernia Acute New onset type 2 diabetes mellitus Acute
--- NOTE | 2018-03-24 12:51 | SOAPPROG ---
SOAP Progress Note Assessment/Plan: Assessment: 52-year-old male with perforated diverticulitis Remains febrile, remainder of vital signs stable Patient still has minimal abdominal pain in his abdomen remained soft and non peritoneal CT scan yesterday showed that the fluid collection had increased, will go to IR today for percutaneous drain placement Did discuss with the patient that if he fails percutaneous drainage he will require surgery Plan: 03/24/18 12:50 Subjective: Afebrile, minimal pain Objective: Vital Signs Temp Pulse Resp BP Pulse Ox 36.5 C 65 19 117/78 99 03/24/18 12:24 03/24/18 11:15 03/24/18 12:45 03/24/18 12:45 03/24/18 12:45 Laboratory Results 03/24/18 04:15 03/24/18 04:15 03/23/18 03/24/18 03/25/18 05:59 05:59 05:59 Intake Total 750 3512 400 Output Total 65 Balance 750 3512 335 ICD10 Worksheet Patient Problems: Problems Problem Status Onset Diverticulitis large intestine Acute Left inguinal hernia Acute New onset type 2 diabetes mellitus Acute
--- NOTE | 2018-03-24 13:29 | ASMTCMCOM ---
CM Note CM Note Notes: Pts case discussed w/ DARYN Sanchez. Pt currently has a LUIS drain. It is uncertain if pt will d/c home and come back for surgery or have surgery during this hospitalization. No CM needs at this time. CM available for changes. Plan: Independent Date Signed: 03/24/2018 01:28 PM Electronically Signed By:MICHELLE Coto
[2018-03-24] MEDS: ERTAPENEM 1 GM in NS 100 ML IV SCH (17:30)
[2018-03-25] MEDS: ACETAMINOPHEN 325 MG TAB PO PRN ×3 (00:27→16:58)
[2018-03-25] MEDS: INSULIN REGULAR HUMAN 100 UNIT/ML UNIT SC SCH ×2 (08:56→11:54)
--- NOTE | 2018-03-25 12:49 | HOSPPROG ---
Hospitalist Progress Note Assessment/Plan: Patient is a 52 y/o male who presented to the ER with Fever. He had a CT scan which showed acute diverticulitis of the sigmoid colon w associated microperforation. *Acute diverticulitis with a small perforation and phlegmon -IV Ertapenem -tolerating clear liquids -fluid collection on CT, s/p IR drainage with 60 ml of purulent drainage removed -prelim cx of drainage shows strep anginosus, gram neg mindi -will eventually need a colectomy per Dr Avelar -continue supportive care with IV hydration *Leukocytosis and fever -due to the above, had another fever last night -continued treatment w Tylenol -both sets of blood cx show no growth *incidental adrenal nodule, this was noted on CT -should continued to have monitored in the OP setting -needs a PCP at discharge *left inguinal hernia -may need surgery for this down the road *hyperglycemia -hgba1c 8, type 2 DM dx -dc glucose checks have been overall stable *anemia -likely dilutional -stable *Plan: continued close watching, recheck labs in a.m., if cont to have fevers; will re-image him. Patient is not quite himself today, no focal neuro deficits. Received versed and fentanyl yesterday and doesn't take narcotics/ will monitor. Subjective: Solo is feeling fine. Anxious to go home and not having significant pain. Objective: Vital Signs Temp Pulse Resp BP Pulse Ox 37.9 C 71 18 113/72 92 03/25/18 12:00 03/25/18 12:00 03/25/18 12:00 03/25/18 12:00 03/25/18 12:00 Microbiology 03/24/18 12:27 Gram Stain - Final Abdomen - Aspirate Laboratory Results 03/24/18 04:15 03/24/18 04:15 03/24/18 03/25/18 03/26/18 05:59 05:59 05:59 Intake Total 3512 2350 Output Total 175 Balance 3512 2175 - Physical Exam Constitutional: no apparent distress, appears nourished, not in pain Eyes: PERRL Ears, Nose, Mouth, Throat: hearing normal Cardiovascular: regular rate and rhythym Respiratory: no respiratory distress, reduced air movement Gastrointestinal: normoactive bowel sounds, other (ryley from abdomen with serous drainage) Skin: warm Musculoskeletal: full muscle strength Neurologic: AAOx3 Psychiatric: interacting appropriately ICD10 Worksheet Patient Problems: Problems Problem Status Onset Diverticulitis large intestine Acute Left inguinal hernia Acute New onset type 2 diabetes mellitus Acute
[2018-03-25] MEDS: ERTAPENEM 1 GM in NS 100 ML IV SCH (16:59)
--- NOTE | 2018-03-25 17:28 | SOAPPROG ---
SOAP Progress Note Assessment/Plan: Assessment: 52-year-old male with perforated diverticulitis fever again last night, disappointing abdomen soft, Pigtail now serosang, pulled a lot of purluent material out yesterday await final cx, cont abx. Nothing at this time to indicate failure of cons management Plan: 03/24/18 12:50 03/25/18 17:27 Subjective: belly feels better, fevers are getting tolerable Objective: Vital Signs Temp Pulse Resp BP Pulse Ox 37.3 C 67 16 106/76 94 03/25/18 15:46 03/25/18 15:46 03/25/18 15:46 03/25/18 15:46 03/25/18 15:46 Microbiology 03/24/18 12:27 Gram Stain - Final Abdomen - Aspirate Laboratory Results 03/24/18 04:15 03/24/18 04:15 03/24/18 03/25/18 03/26/18 05:59 05:59 05:59 Intake Total 3875 8413 Output Total 175 Balance 4141 1967 ICD10 Worksheet Patient Problems: Problems Problem Status Onset Diverticulitis large intestine Acute Left inguinal hernia Acute New onset type 2 diabetes mellitus Acute
[2018-03-25] MEDS ORDERED: ACETAMINOPHEN 325 MG TAB PO PRN (18:00)
[2018-03-26 05:31] LABS: PLATELET COUNT 245 10^3/uL (150-400)
--- NOTE | 2018-03-26 08:41 | SOAPPROG ---
SOAP Progress Note Assessment/Plan: Assessment: 51 y/o M s/p IR drain placement for diverticular abscess S: Feels better. Passing some gas and one small BM. Denies abdominal pain. Tolerating clears. O: Alert Temp down from 37.6 to 34.4 today RRR No increased WOB Abdomen: soft, nontender, distended, hypoactive bowel sounds, LUIS drain with serosanguinous drainage. Plan: Continue clears for now. Continue to watch temp, hopefully it will keep going down. 03/26/18 08:39 Objective: Vital Signs Temp Pulse Resp BP Pulse Ox 37.4 C 58 L 16 98/54 L 92 03/26/18 04:00 03/26/18 04:00 03/26/18 04:00 03/26/18 04:00 03/26/18 04:00 Microbiology 03/24/18 12:27 Gram Stain - Final Abdomen - Aspirate 03/20/18 19:10 Blood Culture - Final Blood 03/20/18 19:10 Blood Culture - Final Blood Laboratory Results 03/26/18 04:43 03/26/18 04:43 03/25/18 03/26/18 03/27/18 05:59 05:59 05:59 Intake Total 2350 660 Output Total 175 60 Balance 217 600 ICD10 Worksheet Patient Problems: Problems Problem Status Onset Diverticulitis large intestine Acute Left inguinal hernia Acute New onset type 2 diabetes mellitus Acute
--- NOTE | 2018-03-26 12:52 | HOSPPROG ---
Hospitalist Progress Note Assessment/Plan: Patient is a 52 y/o male who presented to the ER with Fever. He had a CT scan which showed acute diverticulitis of the sigmoid colon w associated microperforation. *Acute diverticulitis with a small perforation and phlegmon -IV Ertapenem -tolerating clear liquids -fluid collection on CT, s/p IR drainage with 60 ml of purulent drainage removed -denies abdominal pain put with palp, has pain in ruq,rlq and llq areas -will eventually need a colectomy per Dr Avelar -continue supportive care with IV hydration -curb sided ID and they agree w current treatment *Leukocytosis and fever -leukocytosis has resolved, having some low grade fevers -both sets of blood cx show no growth *incidental adrenal nodule, this was noted on CT -should continued to have monitored in the OP setting -needs a PCP at discharge *left inguinal hernia -may need surgery for this down the road *hyperglycemia -hgba1c 8, type 2 DM dx -dc glucose checks have been overall stable *anemia -likely dilutional -stable *Plan: will review w Dr Avelar, patient feeling fine with eating and drinking clear liquids, cont to have some pain in his abdomen. Drain in place Subjective: Solo is feeling overall fine but continues to feel feverish at times. Objective: Vital Signs Temp Pulse Resp BP Pulse Ox 36.9 C 54 L 14 110/75 92 03/26/18 11:43 03/26/18 11:43 03/26/18 11:43 03/26/18 11:43 03/26/18 11:43 Microbiology 03/24/18 12:27 Gram Stain - Final Abdomen - Aspirate 03/20/18 19:10 Blood Culture - Final Blood 03/20/18 19:10 Blood Culture - Final Blood Laboratory Results 03/26/18 04:43 03/26/18 04:43 03/25/18 03/26/18 03/27/18 05:59 05:59 05:59 Intake Total 2350 660 Output Total 175 60 10 Balance 2175 600 -10 - Physical Exam Constitutional: no apparent distress, appears nourished, No not in pain (pain in abdomen w palp to his ruq, rlq and llq) Eyes: PERRL Ears, Nose, Mouth, Throat: hearing normal Cardiovascular: regular rate and rhythym Respiratory: no respiratory distress, reduced air movement Skin: warm Musculoskeletal: full muscle strength Neurologic: AAOx3 Psychiatric: interacting appropriately ICD10 Worksheet Patient Problems: Problems Problem Status Onset Diverticulitis large intestine Acute Left inguinal hernia Acute New onset type 2 diabetes mellitus Acute
[2018-03-26] MEDS: ERTAPENEM 1 GM in NS 100 ML IV SCH (18:19)
--- NOTE | 2018-03-27 11:27 | ASMTCMCOM ---
CM Note CM Note Notes: CM spoke to Shana RN and LAURENCE Olivo regarding d/c POC. Depending on surgery, pt may or may not have surgery during this hospitalization. Pt will d/c independent when medically stable. CM available for changes. Plan: Independent Date Signed: 03/27/2018 11:26 AM Electronically Signed By:MICHELLE Coto
--- NOTE | 2018-03-27 13:35 | HOSPPROG ---
Hospitalist Progress Note Assessment/Plan: Patient is a 52 y/o male who presented to the ER with Fever. He had a CT scan which showed acute diverticulitis of the sigmoid colon w associated microperforation. *Acute diverticulitis with a small perforation and phlegmon -IV Ertapenem -tolerating clear liquids/will advance diet today -fluid collection on CT, s/p IR drainage with 60 ml of purulent drainage removed -denies abdominal pain put with palp, has pain in ruq,rlq and llq areas -will eventually need a colectomy per Dr Avelar -continue supportive care with IV hydration *Leukocytosis and fever -leukocytosis has resolved, fevers have resolved for the past 2 days -both sets of blood cx show no growth *incidental adrenal nodule, this was noted on CT -should continued to have monitored in the OP setting -needs a PCP at discharge *left inguinal hernia -may need surgery for this down the road *hyperglycemia -hgba1c 8, type 2 DM dx -dc glucose checks have been overall stable *anemia -likely dilutional -stable *Plan: will advance his diet, if pain free, hopefully, can go home tomorrow w close f/u with Dr Avelar. Will get repeat labs in a.m. to assure stability. Subjective: Solo is feeling much better today. has been tolerating cl liquids. Objective: Vital Signs Temp Pulse Resp BP Pulse Ox 36.8 C 53 L 4 L 98/60 L 92 03/27/18 07:39 03/27/18 07:39 03/27/18 07:39 03/27/18 07:39 03/27/18 07:39 Microbiology 03/24/18 12:27 Gram Stain - Final Abdomen - Aspirate 03/20/18 19:10 Blood Culture - Final Blood 03/20/18 19:10 Blood Culture - Final Blood Laboratory Results 03/26/18 04:43 03/26/18 04:43 03/26/18 03/27/18 03/28/18 05:59 05:59 05:59 Intake Total 660 1550 Output Total 60 35 Balance 600 1515 - Physical Exam Constitutional: no apparent distress, appears nourished, not in pain Eyes: PERRL Ears, Nose, Mouth, Throat: hearing normal Cardiovascular: regular rate and rhythym Respiratory: no respiratory distress Gastrointestinal: normoactive bowel sounds, No tenderness Skin: warm Musculoskeletal: full muscle strength Neurologic: AAOx3 Psychiatric: interacting appropriately ICD10 Worksheet Patient Problems: Problems Problem Status Onset Diverticulitis large intestine Acute Left inguinal hernia Acute New onset type 2 diabetes mellitus Acute
[2018-03-27] MEDS: ERTAPENEM 1 GM in NS 100 ML IV SCH (18:17)
[2018-03-28 06:05] LABS: PLATELET COUNT 309 10^3/uL (150-400)
[2018-03-28 07:58] VITALS: BP 111/77
[2018-03-28] MEDS ORDERED: ALTEPLASE 2 MG VIAL IVP PRN (09:48)
--- NOTE | 2018-03-28 10:07 | ASMTCMCOM ---
CM Note CM Note Notes: Spoke w/BINDERY MANAGER and ID, pt will need several weeks of IV abx. CM sent referral to [facility] [facility] for pricing. Date Signed: 03/28/2018 10:06 AM Electronically Signed By:Minnie Cm RN
--- NOTE | 2018-03-28 10:27 | SOAPPROG ---
MACKENZIE Progress Note Assessment/Plan: Assessment: 51 y/o M s/p IR drain placement for diverticular abscess S: Feels better. Passing some gas and one small BM. Denies abdominal pain. Tolerating clears. O: Alert Temp down from 37.6 to 34.4 today RRR No increased WOB Abdomen: soft, nontender, distended, hypoactive bowel sounds, LUIS drain with serosanguinous drainage. Plan: Continue clears for now. Continue to watch temp, hopefully it will keep going down. 03/26/18 08:39 03/28/18 10:25 Pt doing well. Denies pain. Passing gas. Drain with serosanguinous drainage. Drainogram ordered for today. Discussed case with medicine, pt will need several weeks of iv abx. Plan for picc line insertion and discharge in next day or so. Objective: Vital Signs Temp Pulse Resp BP Pulse Ox 36.8 C 57 L 14 111/77 91 L 03/28/18 07:57 03/28/18 07:57 03/28/18 07:57 03/28/18 07:57 03/28/18 07:57 Microbiology 03/24/18 12:27 Gram Stain - Final Abdomen - Aspirate Laboratory Results 03/28/18 04:50 03/26/18 04:43 03/27/18 03/28/18 03/29/18 05:59 05:59 05:59 Intake Total 1550 535 Output Total 35 10 Balance 1515 525 ICD10 Worksheet Patient Problems: Problems Problem Status Onset Diverticulitis large intestine Acute Left inguinal hernia Acute New onset type 2 diabetes mellitus Acute
--- NOTE | 2018-03-28 13:21 | HOSPPROG ---
Hospitalist Progress Note Assessment/Plan: Patient is a 52 y/o male who presented to the ER with Fever. He had a CT scan which showed acute diverticulitis of the sigmoid colon w associated microperforation. *Acute diverticulitis with a small perforation and phlegmon -IV Ertapenem -tolerating a regular diet -fluid collection on CT, s/p IR drainage with 60 ml of purulent drainage removed -will eventually need a colectomy per Dr Avelar *Leukocytosis and fever -leukocytosis has resolved, fevers have resolved for the past 2 days -both sets of blood cx show no growth *incidental adrenal nodule, this was noted on CT -should continued to have monitored in the OP setting -needs a PCP at discharge *left inguinal hernia -may need surgery for this down the road *hyperglycemia, explained to him he has Diabetes and needs follow up -hgba1c 8, type 2 DM dx -dc glucose checks have been overall stable *anemia -likely dilutional -stable *Plan: will get a PICC in place prior to dc, reviewed his care with Dr Chinchilla and he will help facilitate his antibiotics. Very appreciative for his involvement. He understands the risks and benefits to a PICC being placed. Subjective: Solo is feeling fine. Objective: Vital Signs Temp Pulse Resp BP Pulse Ox 36.8 C 57 L 14 111/77 91 L 03/28/18 07:57 03/28/18 07:57 03/28/18 07:57 03/28/18 07:57 03/28/18 07:57 Microbiology 03/24/18 12:27 Gram Stain - Final Abdomen - Aspirate Laboratory Results 03/28/18 04:50 03/26/18 04:43 03/27/18 03/28/18 03/29/18 05:59 05:59 05:59 Intake Total 1550 535 Output Total 35 10 Balance 1515 525 - Physical Exam Constitutional: no apparent distress, appears nourished, not in pain Eyes: PERRL Ears, Nose, Mouth, Throat: hearing normal Cardiovascular: regular rate and rhythym Respiratory: no respiratory distress Gastrointestinal: normoactive bowel sounds, other (ryley with minimal serous drainage) Skin: warm Musculoskeletal: full muscle strength Neurologic: AAOx3 Psychiatric: interacting appropriately ICD10 Worksheet Patient Problems: Problems Problem Status Onset Diverticulitis large intestine Acute Left inguinal hernia Acute New onset type 2 diabetes mellitus Acute
--- NOTE | 2018-03-28 13:55 | PDIAF ---
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 PICC Care - Routine: Yes - Labs/Radiology CBC w/diff Date: 04/02/18 (Weekly Q Monday) CMP Date: 04/02/18 (Weekly Q Monday) Call or Fax Lab and Imaging Results to: Dr. Chinchilla, - Follow Up Care Current Providers and Referrals: NONE *PRIMARY CARE P,. [Primary Care Provider] - As per Instructions Christa Samuels NP [Certified Nurse Practioner] - 04/05/18 3:00 pm
--- NOTE | 2018-03-28 14:04 | ASMTLACE ---
LACE Length of stay for Answers: 7-13 days current admission Acuity / Level of Answers: Yes Care: Did the patient have an inpatient admission? Comorbidities - select Answers: Diabetes (uncontrolled or all that apply controlled) Other Notes: diverticulitis, hernia # of Emergency department Answers: 1-2 visits in the last 6 months Score: 11 Date Signed: 03/28/2018 02:03 PM Electronically Signed By:Minnie Cm RN
[2018-03-28] MEDS ORDERED: IOPAMIDOL (ISOVUE 370) 100 ML BTL IV ONE (14:19)
--- NOTE | 2018-03-28 14:46 | GCON ---
[f rep st] CONSULTATION INFECTIOUS DISEASE CONSULTATION DATE OF CONSULTATION: 03/28/2018 REFERRING PHYSICIAN: Pallavi Collins NP REASON FOR CONSULTATION: Antibiotic management associated with diverticular abscess. HISTORY OF PRESENT ILLNESS: The patient is a 52-year-old male without significant past medical histo ry, who I am asked to see in consultation for diverticular abscess. The patient was admitted on 03/04, with complaints of fever, rigors, malaise, and concern about a hernia. He did not have signi ficant associated abdominal pain. There was no nausea or vomiting. The patient initially had been e valuated at [facility] on 03/19/2018, at which point in time he was managed conservatively for a left inguin al hernia. The patient notes he had fever persisting after that visit, prompting re-evaluation on . At the time of presentation, he was noted to have a white count of 16.8 with left shift. Based on his presenting findings, CT scan of the abdomen and pelvis was performed, which showed evide nce of a 4 x 3 cm organizing fluid collection with air adjacent to the sigmoid colon. This was felt to be compatible with diverticular abscess and diverticulitis with microperforation. The patient was treated with IV ertapenem since the time of presentation. On 03/24/2018, the patient underwent CT-g uided drainage of the diverticular abscess yielding 10 mL of brown purulent fluid. Gram stain showed 4+ white blood cells and 4+ gram-positive cocci with culture showing growth of E coli and Streptococ cus anginosus. The E coli isolate is fluoroquinolone resistant. Post drainage, the patient has show n clinical improvement with normalization of his leukocytosis. He is no longer experiencing fever or rigors. Given the above findings, I am now asked to assist in his ongoing management. PAST MEDICAL HISTORY: Unremarkable. PAST SURGICAL HISTORY: Right ankle traumatic injury at age 13. CURRENT MEDICATIONS: Ertapenem 1 g IV daily, Lovenox 40 mg subcu daily, Ultram as needed. ALLERGIES: No known drug allergies. SOCIAL HISTORY: Patient chews tobacco. Rare alcohol intake. No recent travel. Pet dog at home. FAMILY HISTORY: Unknown as he is adopted. REVIEW OF SYSTEMS: Outside that noted in the HPI, the remainder of the 10-system review is unremarka ble. PHYSICAL EXAMINATION: VITAL SIGNS: Temperature 36.8, heart rate 57, respiratory rate 14, blood pres sure 111/77, oxygen saturation 91% on room air. GENERAL: Patient is well nourished, well developed, in no acute distress. He appears nontoxic. HEENT: There is no scleral icterus, conjunctival injec tion, or conjunctival petechiae. Oropharynx shows moist mucous membranes. Dentition is in poor repa ir. There is no nasal discharge. There is no tenderness over the sinuses. NECK: Supple without pa lpable lymphadenopathy or thyromegaly. CHEST: Clear to auscultation bilaterally without adventitiou s sounds. Respiratory effort is normal. CARDIOVASCULAR: Regular rate and rhythm without murmurs, g allops, rubs. ABDOMEN: Soft, mildly tender in the left lower quadrant. LUIS drain is in place with o utput of serosanguineous fluid. Bowel sounds are present. No palpable organomegaly. MUSCULOSKELETA L: No cyanosis, clubbing, or edema. SKIN: No rashes present. No stigmata of endocarditis. Skin i s warm and dry to touch. NEUROLOGIC: The patient is alert and interacts appropriately with examiner . Cranial nerves 2-12 are grossly intact. Sensation is grossly intact. Muscle tone and bulk are no rmal. LYMPHATICS: No cervical or supraclavicular nodes palpable. LABORATORY DATA: White blood cell count 8.4, hematocrit 39.2, platelets 309, neutrophils 57%, lympho cytes 31%. Serum creatinine is 0.6, AST 50, ALT 53, alkaline phosphatase 71, bilirubin 0.9, albumin 2.6. Blood cultures x4 sets dating 03/20/2018 and 03/23/2018, respectively, are no growth. Abscess cultures are showing growth of E coli and Streptococcus anginosus. CT images as outlined above, which were reviewed and interpreted by me today; these images were also reviewed with the patient during consultation. IMPRESSION: Diverticular abscess, status post percutaneous drainage: Cultures are showing growth of Escherichia coli and Streptococcus anginosus, which is typical of enteric irvin. Escherichia coli i s fluoroquinolone resistant. Given the susceptibility profiles of the organisms, I think proceeding with a treatment course of intravenous antibiotics is optimal given that other oral therapies will iqbal ve limited tissue penetration. Anticipate 2-week duration of intravenous antibiotic therapy provided abscess continues to resolve. He is scheduled to have repeat imaging to assess adequacy of drainage today. RECOMMENDATIONS: 1. Ceftriaxone 2 g IV q.24 hours (favor this for Streptococcus anginosus over ertapenem). 2. Metronidazole 500 mg orally 3 times per day (excellent oral bioavailability). 3. Await repeat imaging to assess adequacy of drainage/feasibility of drain discontinuation. 4. Risks and benefits of PICC line and IV ceftriaxone/oral metronidazole discussed with patient erlinda cameron. This included discussion of need to avoid alcohol intake with metronidazole to avoid Antabuse eff ect. 5. Agree with plans to ultimately undergo sigmoidectomy once acute abscess has resolved and inflamma tory changes have resolved. 6. Patient will follow up in my office next week for ongoing care. Thank you for this consultation. /[id number]/MODL
--- NOTE | 2018-03-28 15:44 | ASMTCMCOM ---
CM Note CM Note Notes: Received call from [facility], pt covered at 100%, Kiersten from [employer] is setting up RN. All of this discussed with pt who is waiting to get PICC line. DC Plan: Home Infusion/[facility](RN) Date Signed: 03/28/2018 02:00 PM Electronically Signed By:Minnie Cm RN
--- NOTE | 2018-03-28 16:27 | PDIAF ---
- Diagnosis Diagnosis: Diverticular abscess Code Status: Full Code - Medication Management Discharge Medications: Medications to Continue on Transfer Acetaminophen [Tylenol 325mg (*)] 650 mg PO Q4H PRN tab 03/28/18 [Last Taken Unknown] cefTRIAXone [Rocephin] 2 gm IV DAILY vial 03/28/18 [Last Taken Unknown] metroNIDAZOLE [Flagyl 500 mg (*)] 500 mg PO TID #30 tab 03/28/18 [Last Taken Unknown] Intermediate Antibiotics: Ceftriaxone 2 g IV Q 24 hr, metronidazole 500 mg orally three times daily Intermediate Antibiotic Stop Date: 04/08/18 Discharge Medications: Refer to the Discharge Home Medication list for PRN reason. PICC Care - Routine: Yes - Orders Services needed: Home Care, Registered Nurse Home Care Face to Face: I certify that this patient was under my care and that I had the required [id number]-nnri encounter meeting the encounter requirements on the discharge day. My findings support the fact that the patient is homebound as defined in Home Care Face to Face Continued: CMS Chapter 7 Medicare Benefits Manual 30.1.1 , The condition of the patient is such that there exists a normal inability to leave home and consequently, leaving home would require a considerable and taxing effort. Diet Recommendation: no restrictions on diet, ADA 2200 consistent carb Diet Texture: Regular Texture Diet Additional Instructions: no heavy lifting w right arm call Dr Avelar office for a follow up appointment, they will see you early next week, likely on Monday if you develop worsening abdominal pain, fever, chills; return to the ER a script for Flagyl [facility] start Flagyl tomorrow morning - take w food - Labs/Radiology CBC w/diff Date: 04/02/18 (Weekly Q Monday) CMP Date: 04/02/18 (Weekly Q Monday) Call or Fax Lab and Imaging Results to: Dr. Chinchilla, - Follow Up Care Current Providers and Referrals: Edgard Avelar MD [Medical Doctor] - Christa Samuels NP [Certified Nurse Practioner] - 04/05/18 3:00 pm NONE *PRIMARY CARE P,. [Primary Care Provider] - As per Instructions
--- NOTE | 2018-03-28 17:06 | GDS ---
[f rep st] DISCHARGE SUMMARY DISCHARGE DIAGNOSES: 1. Acute diverticulitis with small perforation and phlegmon, status post interventional radiology drainage. 2. Leukocytosis and fever. 3. Incidental adrenal nodule noted on CT. 4. Left inguinal hernia. 5. New diagnosis of diabetes. 6. Anemia. CONSULTATIONS: 1. Dr. Edgard Avelar. 2. Dr. Sundeep Chinchilla. HISTORY: Briefly, the patient is a 52-year-old gentleman who presented to the emergency room with rigors, malaise, and had some concerns about a hernia. He did not have significant abdominal pain. He was seen at [facility] on March 19 and was evaluated for a left inguinal hernia. After he left, he noticed that he had a fever after that visit. He came to the emergency room with an elevated white blood cell count and had a CT of the abdomen and pelvis. This showed a 4 x 3 cm organizing fluid collection adjacent to the sigmoid colon. He was treated with IV ertapenem. He eventually underwent CT-guided of the diverticular abscess. He was treated with ertapenem. He improved throughout his stay. He will continue IV antibiotics in the outpatient setting as well as oral Flagyl. He will follow up with Dr. Chinchilla and with Dr. Avelar for followup care. HOSPITAL COURSE: 1. Acute diverticulitis with small perforation and phlegmon. He had a drain placed in, which was removed today. He will need a colectomy and further follow up with Dr. Avelar. For now, he will be on ceftriaxone 2 g IV daily as well as Flagyl 500 mg b.i.d. 2. Leukocytosis and fever, both resolved. 3. Incidental adrenal nodule. This was noted on CT. He needs to have this monitored with his primary care provider. 4. Left inguinal hernia. He is planning on getting surgery. 5. Hyperglycemia, new diagnosis of diabetes. He needs to get further evaluation. His glucoses have been stable. 6. Anemia, stable. DISCHARGE CONDITION: Stable. Blood pressure is 111/77, O2 sats on room air 91% , respiratory rate is 14, pulse is 57, temperature is 36.8 Celsius. MEDICATIONS AT DISCHARGE: Please see the EMR. DISCHARGE INSTRUCTIONS: 1. No heavy lifting with his right arm where the PICC is placed. 2. If he develops worsening abdominal pain, fever, chills, return to the ER. 3. He has an incidental nodule that needs to be monitored in the outpatient setting. 4. To avoid any alcohol while on Flagyl. Greater than 45 minutes discharging and coordinating the patient's care. /[id number]/MODL MTDD
--- NOTE | 2018-03-28 17:43 | ASDISCHSUM ---
Discharge Information Plan Status:IV ABX/Infusion Medically Cleared to Leave: Discharge Date:03/28/2018 05:05 PM D/C Disposition:Home Health Service ADT D/C Disposition:Home Health Service Projected Discharge Date:03/28/2018 11:00 AM Transportation at D/C:Family Discharge Delay Reason: Follow-Up Date:03/28/2018 11:00 AM Discharge Slot: Final Diagnosis: Placement Information Referral Type:Home Infusion Referral ID:[id number] Provider Name:[facility] [place] [facility] Address 1:[address] Address 2: City:[place] Selection Factors: State:[place] Referral Type:*Home Health Care Services Referral ID:[id number] Provider Name:[facility] [place] Address 1:[address] Address 2: City:[place] Selection Factors: State:[place] Patient Contact Information Contact Name:CANDY Relationship: Address: Home Phone: Work Phone: City: [facility] Phone: [facility] Code: Email: Financial Information Financial Class:Worker's Compensation Primary Plan Desc:[employer] Primary Plan Number:[id number] Secondary Plan Desc:[place] [employer] OF [employer] [facility] Secondary Plan Number:[id number] Assessment Information [facility] CM Progress Note CM Note CM Note Notes: Pt admitted through ED complaining of fever and groin pain. CT showed diverticulitis with micro perfs and inguinal hernia. CM needs TBD pending hospitalist evaluation. Date Signed: 03/20/2018 04:23 PM Electronically Signed By:LEO Bernardo LACE CAROLYN Length of stay for Answers: 7-13 days current admission Acuity / Level of Answers: Yes Care: Did the patient have an inpatient admission? Comorbidities - select Answers: Diabetes (uncontrolled or all that apply controlled) Other Notes: diverticulitis, hernia # of Emergency department Answers: 1-2 visits in the last 6 months Score: 11 Date Signed: 03/28/2018 02:03 PM Electronically Signed By:Minnie Cm RN [facility] CM Progress Note CM Note CM Note Notes: Spoke with pt and RN who both anticipate pt will d/c home independently. Microperforations now being managed conservatively, pt will need colectomy once infection has subsided after discharge. Pt states he does not yet have a PCP, but lives in [place] so not likely [facility] PCP will be feasible. Pt acknowledges follow up with PCP on new DM diagnosis is important and states he will do so. No CM needs anticipated on D/C at this time. CM will follow for possible changes. Plan: Independent Date Signed: 03/21/2018 08:40 PM Electronically Signed By:Christina Mortensen RN [facility] CM Progress Note CM Note CM Note Notes: Pts case discussed w/ DARYN Sanchez. Pt currently has a LUIS drain. It is uncertain if pt will d/c home and come back for surgery or have surgery during this hospitalization. No CM needs at this time. CM available for changes. Plan: Independent Date Signed: 03/24/2018 01:28 PM Electronically Signed By:MICHELLE Coto [facility] CM Progress Note CM Note CM Note Notes: CM spoke to DARYN Saldana and LAURENCE Olivo regarding d/c POC. Depending on surgery, pt may or may not have surgery during this hospitalization. Pt will d/c independent when medically stable. CM available for changes. Plan: Independent Date Signed: 03/27/2018 11:26 AM Electronically Signed By:MICHELLE Coto [facility] CM Progress Note CM Note CM Note Notes: Spoke w/MASSAGE OPERATOR and ID, pt will need several weeks of IV abx. CM sent referral to [employer] for pricing. Date Signed: 03/28/2018 10:06 AM Electronically Signed By:Minnie Cm RN [facility] CM Progress Note CM Note CM Note Notes: Received call from [employer], pt covered at 100%, Kiersten from [facility] is setting up RN. All of this discussed with pt who is waiting to get PICC line. DC Plan: Home Infusion/[facility](DARYN) Date Signed: 03/28/2018 02:00 PM Electronically Signed By:Minnie Cm RN Intervention Information
== END 2018-03-28 17:05 | disposition home health service (06) | DRG 392 ==
LOC: CED 09:19 → CEDHOLD 12:40 → F3E 15:56
PROVIDERS: ADMIT Family Medicine; ATTEND Internal Medicine
PROC: 0D9W30Z Drainage of Peritoneum with Drainage Device, Percutaneous Approach (ICD-10-PCS; principal; 2018-03-24 11:23)
PROC: 02H633Z Insertion of Infusion Device into Right Atrium, Percutaneous Approach (ICD-10-PCS; 2018-03-28)
DX: K57.20 Diverticulitis of large intestine with perforation and abscess without bleeding (principal); B96.29 Other Escherichia coli [E. coli] as the cause of diseases classified elsewhere; Z16.23 Resistance to quinolones and fluoroquinolones; B95.4 Other streptococcus as the cause of diseases classified elsewhere; K40.90 Unilateral inguinal hernia, without obstruction or gangrene, not specified as recurrent; E11.65 Type 2 diabetes mellitus with hyperglycemia; E87.1 Hypo-osmolality and hyponatremia; E27.9 Disorder of adrenal gland, unspecified
CPT/HCPCS: 74177-PO; 76705-PO; 80053-PO; 83605-PO; 96365; C1751; J0696; J0744; J1335; J1650; J1815; J1885; J2250; J2310; J3010; Q9967

== ENCOUNTER → 2018-05-03 | Outpatient (CLI) | payer BC, OTHER ==
[~2018-05-03] MED LIST: IOPAMIDOL (ISOVUE-300) 100 ML BTL ONE
== END ==
LOC: FIMAGING 14:33
PROVIDERS: ATTEND Surgery
DX: K56.609 Unspecified intestinal obstruction, unspecified as to partial versus complete obstruction (principal); K57.20 Diverticulitis of large intestine with perforation and abscess without bleeding; N32.9 Bladder disorder, unspecified
CPT/HCPCS: Q9967

== ENCOUNTER 2019-01-14 12:16 | Day surgery (SDC) | payer BC, OTHER ==
--- NOTE | 2019-01-11 11:22 | GHP ---
[f rep st] PREOP HISTORY AND PHYSICAL DATE OF ADMISSION: 01/14/2019 HISTORY OF PRESENT ILLNESS: Patient is a 53-year-old male with a history of colon cancer. He is sta tus post sigmoid colectomy and partial cecectomy approximately 9 months ago. He now presents with a ventral hernia. He reports that it is slightly tender to palpation. He denies nausea, vomiting, con stipation, diarrhea. PAST MEDICAL HISTORY: 1. Colon cancer. 2. Diverticulitis with perforation and abscess. PAST SURGICAL HISTORY: 1. Sigmoid colectomy. 2. Cecectomy. MEDICATIONS: 1. Metformin 500 mg twice daily. 2. FOLFOX chemotherapy. ALLERGIES: No known drug allergies. SOCIAL HISTORY: Patient is a nonsmoker. He works part-time. PHYSICAL EXAM: GENERAL: Well-appearing, well-dressed, no acute distress. HEENT: Normocephalic, at raumatic. No gross hearing deficits. Mucous membranes moist. No scleral icterus. CARDIAC: Regula r rate and rhythm. No clicks, murmurs, or rubs. RESPIRATORY: Clear to auscultation bilaterally. N o wheezes, rales, or rhonchi. ABDOMEN: Soft, nontender, nondistended. Ventral hernia present in pa tient's midline incision. MUSCULOSKELETAL: Moves all extremities equally x4. NEUROLOGICAL: Alert and oriented x3. PSYCHIATRIC: Appropriate mood and affect. ASSESSMENT/PLAN: This is a 53-year-old patient with a history of colon cancer and colectomy surgery. He now has a ventral hernia in his midline incision. We discussed the risks, and options of surger y which include, but are not limited to infection, bleeding, recurrence, need for further surgery, ne ed for open, need for conversion to open procedure, heart attack, and . Patient understands and wishes to proceed. We will proceed with robotic assisted ventral hernia repair with possible mesh. /[id number]/MODL
[2019-01-14] MEDS ORDERED: ceFAZolin 2 GM/DEXTROSE 100 ML IV ONE (12:31)
[2019-01-14] MEDS ORDERED: LR 1,000 ML IV ONE (12:31)
[2019-01-14] MEDS ORDERED: INSULIN REGULAR HUMAN 100 UNIT/ML UNIT IVP ONE (15:30)
[2019-01-14] MEDS ORDERED: BUPIVACAINE 0.5% 30 ML SDV ONE (15:35)
--- NOTE | 2019-01-14 16:10 | PDHPUP ---
History & Physical Update H&P update statement: This history and physical update is based on an assessment of the patient which was completed after admission or registration (within 24 hours), but prior to the surgery/procedure. H&P update: H&P reviewed & patient examined, no change in patient's condition since H&P completed
--- NOTE | 2019-01-14 16:47 | PDANEPAE ---
ANE Past Medical History - Cardiovascular History Hx Hypertension: No Hx Arrhythmias: No Hx Chest Pain: No Hx Coronary Artery / Peripheral Vascular Disease: No Hx CHF / Valvular Disease: No Hx Palpitations: No - Pulmonary History Hx COPD: No Hx Asthma/Reactive Airway Disease: Yes Hx Recent Upper Respiratory Infection: No Hx Oxygen in Use at Home: No Hx Sleep Apnea: No Sleep Apnea Screening Result - Last Documented: Positive Pulmonary History Comment: Childhood asthma, now resolved. - Neurologic History Hx Cerebrovascular Accident: No Hx Seizures: No Hx Dementia: No - Endocrine History Hx Diabetes: No Endocrine History Comment: Prediabetic on metformin. - Renal History Hx Renal Disorders: No - Liver History Hx Hepatic Disorders: No - Neurological & Psychiatric Hx Hx Neurological and Psychiatric Disorders: No - Cancer History Hx Cancer: Yes Cancer History Comment: Colon CA dx Fall 2017, s/p FOLFOX chemotherapy in remission. - Congenital Disorder History Hx Congenital Disorders: No - GI History Hx Gastrointestinal Disorders: Yes Gastrointestinal History Comment: Colon CA causing SBO. - Other Health History Other Health History: Missing teeth lower jaw. Anemia s/t chemotherapy. - Chronic Pain History Chronic Pain: No - Surgical History Prior Surgeries: Vasular access port placement Fall 2017. Colon resection Fall 2017. R ankle surgery in childhood ANE Review of Systems Review of Systems: - Exercise capacity METS (RN): 4 METS ANE Patient History - Allergies Allergies/Adverse Reactions: No Known Allergies Allergy (Verified 03/20/18 09:23) - Home Medications Home Medications: metFORMIN HCL [Metformin HCl] 500 mg PO BID 01/04/19 [Last Taken 01/12/19] - NPO status NPO Since - Liquids (Date): 01/14/19 NPO Since - Liquids (Time): 11:33 NPO Since - Solids (Date): 01/13/19 NPO Since - Solids (Time): 22:00 - Smoking Hx Smoking Status: Never smoked - Family Anes Hx Family Hx Anesthesia Complications: Unknown. ANE Labs/Vital Signs - Labs Result Diagrams: 01/14/19 14:30 - Vital Signs Blood Pressure: 114/81 Heart Rate: 80 Respiratory Rate: 20 O2 Sat (%): 94 Height: 180.34 cm Weight: 87.09 kg ANE Physical Exam - Airway Mallampati Score: Class 1 - ASA Status ASA Status: III ANE Anesthesia Plan Anesthesia Plan: general endotracheal anesthesia
[2019-01-14] MEDS ORDERED: fentaNYL 100 MCG/2 ML INJ ONE (16:52)
[2019-01-14] MEDS ORDERED: MIDAZOLAM 2 MG/2 ML VIAL ONE (16:52)
[2019-01-14] MEDS ORDERED: PROPOFOL 200 MG/20 ML VIAL ONE (16:52)
[2019-01-14] MEDS ORDERED: ONDANSETRON 4 MG/2 ML VIAL ONE (16:53)
[2019-01-14] MEDS ORDERED: METOCLOPRAMIDE 10 MG/2 ML VIAL ONE (16:53)
[2019-01-14] MEDS ORDERED: ROCURONIUM 50 MG/5 ML VIAL ONE (16:53)
[2019-01-14] MEDS ORDERED: SUGAMMADEX SODIUM 200 MG/2 ML VIAL IVP ONE (18:09)
--- NOTE | 2019-01-14 18:22 | POSTOPPROG ---
Post Op Note Date of Operation: 01/14/19 Surgeon: Edgard Avelar Reservations Specialist: Ramona Maynard Anesthesiologist: Erick Pisano Anesthesia: GET(General Endotracheal) Pre-op Diagnosis: RIH, hx of perforated colon cancer Post-op Diagnosis: same, likely peritoneal metastasis Procedure: ex-laparoscopy,culture of peritoneal fluid,peritoneal bx's,open RIH c mesh Findings: peritoneal mets, cloudy pelvic fluid, direct hernia Inf/Abcess present in the surg proc area at time of surgery?: Yes Depth: Deep Incisional (Fascial) EBL: Minimal Bowel Protocol: N/A Clean Closure Performed: N/A Specimen(s): for pathology and culture. frozen section of peritoneal biopsies suspicious for mets. due to this, elected not to remove his port as planned.
[2019-01-14] MEDS ORDERED: LR 500 ML IV PRN (18:29)
[2019-01-14] MEDS ORDERED: MEPERIDINE 25 MG/0.5 ML AMP IVP PRN (18:29)
[2019-01-14] MEDS ORDERED: PROMETHAZINE HCL 25 MG/ML INJ IVP PRN (18:29)
[2019-01-14] MEDS ORDERED: HYDROmorphONE/DILAUDID 1 MG/ML INJ IVP PRN (18:29)
[2019-01-14] MEDS ORDERED: NALOXONE HCL 0.4 MG/ML INJ IVP PRN (18:29)
[2019-01-14] MEDS ORDERED: ONDANSETRON 4 MG/2 ML VIAL IVP PRN (18:29)
[2019-01-14] MEDS ORDERED: fentaNYL 100 MCG/2 ML INJ IVP PRN (18:29)
--- NOTE | 2019-01-14 18:31 | POSTANESTH ---
Post Anesthetic Evaluation Cardiovascular Status: Normal, Stable Respiratory Status: Normal, Stable Level of Consciousness/Mental Status: Can Participate in Eval Pain Control: Adequate, Prn Tx Ordered Nausea/Vomiting Control: Adequate, Prn Tx Ordered Complications Possibly Related to Anesthesia: None Noted
[2019-01-14 20:22] VITALS: BP 106/79
--- NOTE | 2019-01-30 21:00 | GOP ---
[f rep st] OPERATIVE REPORT DATE OF OPERATION: 01/14/2019 SURGEON: Edgard Avelar MD FLATWORK IRONER: JOAN Alonso. ANESTHESIOLOGIST: Dr. Pisano. PREOPERATIVE DIAGNOSIS: POSTOPERATIVE DIAGNOSIS: PROCEDURE PERFORMED: 1. Diagnostic laparoscopy with peritoneal biopsy and adhesiolysis. 2. Open left inguinal hernia repair. FINDINGS: The patient was found to have multiple intraabdominal adhesions obscuring laparoscopic ing uinal hernia repair. In addition, he was found to have multiple suspicious nodules on the peritoneum in the pelvis, several of which were biopsied, sent out, and returned as probable peritoneal metasta ses. He had a moderate size direct hernia as well. SPECIMENS: Peritoneal fluid was sent for culture from the laparoscopic procedure. ESTIMATED BLOOD LOSS: Negligible. DESCRIPTION OF PROCEDURE: Patient taken to the operating room where he received a satisfactory gener al endotracheal anesthesia by Dr. Pisano. He was placed in the supine position, prepped and draped i n the usual sterile fashion. A periumbilical incision was made. A Veress needle inserted. Pneumope ritoneum was established. Trocar was introduced. Laparoscope introduced. Adequate visualization wa s obtained; however, it was readily apparent that he had marked adhesions, had some cloudy peritoneal fluid, and some unusual peritoneal nodules. Two additional trocars were placed, biopsies were taken of the peritoneal nodules, and was felt not safe to proceed with a laparoscopic hernia repair. Troc ars were removed, and pneumoperitoneum was released. Trocar sites were closed with 0 Vicryl for the fascia and 4-0 Monocryl subcuticular stitch for skin, and all layers infiltrated with 0.5% Marcaine. Attention was then turned to the right inguinal hernia. Oblique incision was made in the inguinal a gopal. Dissection was carried down through the subcutaneous tissue. The external oblique was opened t o the external ring. The ilioinguinal nerve was identified and preserved. The cord was mobilized fr om the floor of the canal. Cremasteric fibers were incised. There was no significant indirect sac. The large direct defect was encountered. This was freed up and reduced. The transversalis fascia w as imbricated with a running 2-0 Vicryl suture and then an onlay patch of Parietex ProGrip mesh was p laced over the inguinal floor. The patch was slit laterally to pass the limb around the cord structu res. It was anchored in place with 0 Surgilon sutures, securing it to the lacunar ligament, to the s helving edge of the inguinal ligament, and at the internal oblique fascia. Hemostasis was assured. Cord and nerve were replaced in the anatomic position. All layers were infiltrated with 0.5% Marcain e. External oblique was closed with a running 2-0 Vicryl suture, the subcu with 3-0 Vicryl, and skin with a 4-0 Monocryl subcuticular stitch. He tolerated the procedure quite well. He was then taken to recovery room in good condition. There were no complications. DISPOSITION: He was taken to the recovery room in good condition. There were no complications. /[id number]/MODL
== END 2019-01-14 20:22 | disposition home or self-care (01) ==
LOC: FSGY 12:16
PROVIDERS: ATTEND Surgery
DX: K40.90 Unilateral inguinal hernia, without obstruction or gangrene, not specified as recurrent (principal); C78.6 Secondary malignant neoplasm of retroperitoneum and peritoneum; Z85.038 Personal history of other malignant neoplasm of large intestine; R73.03 Prediabetes
CPT/HCPCS: C1781; J0690; J1815; J2250; J2405; J2704; J2765; J3010